=== PATIENT | male | born 1980 | race Caucasian/White ===

== ENCOUNTER 2019-11-17 21:13 | Emergency (ER) | payer MEDICAID, SELFPAY ==
[~2019-11-17] VITALS: Ht 165.1 cm; Wt 90.7 kg
[2019-11-17 22:14] VITALS: Ht 165.1 cm; Wt 90.7 kg
[2019-11-18 02:03] VITALS: BP 128/79
== END 2019-11-18 02:03 | disposition home or self-care (01) ==
LOC: ED 21:13
DX: U07.1 COVID-19 (principal); B34.9 Viral infection, unspecified; I10 Essential (primary) hypertension
CPT/HCPCS: 83880; 85378; 87804; Q0092; U0003-CS